=== PATIENT | male | born 1945 | race Caucasian/White ===

== ENCOUNTER 2017-06-28 17:31 | Outpatient (CLI) | payer MEDICARE, OTHER | END 2017-06-28 17:32 | disposition critical access hospital (66) | LOC: EMS 17:31 | PROVIDERS: ATTEND Surgery | DX: R29.810 Facial weakness (principal) | CPT/HCPCS: A0425; A0427 ==

== ENCOUNTER 2017-06-28 17:50 | Observation (INO) | payer MEDICARE, OTHER ==
--- NOTE | 2017-06-28 18:12 | ED Physician Documentation ---
PD HPI FOCAL NEURO - Stated complaint Stated Complaint: POSS STROKE - Chief complaint Chief Complaint: Neuro - History obtained from History obtained from: Patient, EMS - History of Present Illness Timing - onset: How many hours ago (9) Timing - duration: Hours (9) Timing - details: Constant Time of symptom onset unknown: Time of onset unknown (last normal at 9am, noticed by someone else at 2pm) Severity of deficit: Moderate Weakness: Face, Left. 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 unknown last CD 4 counts) Baseline status: positive: A&OX3, ambulatory, indep Similar symptoms before: Has not had sx before Recently seen: Not recently seen Review of Systems Ten Systems: 10 systems reviewed and negative Constitutional: denies: Fever, Chills Eyes: denies: Decreased vision, Photophobia Ears: denies: Ear pain Nose: denies: Rhinorrhea / runny nose, Congestion Throat: denies: Sore throat Cardiac: denies: Chest pain / pressure Respiratory: denies: Cough GI: denies: Abdominal Pain, Nausea, Vomiting, Diarrhea Skin: denies: Rash Musculoskeletal: denies: Neck pain, Back pain Neurologic: denies: Confused, Altered mental status, Headache PD PAST MEDICAL HISTORY - Past Medical History Past Medical History: Yes Cardiovascular: Hypertension - Present Medications Home Medications: Ambulatory Orders Medication Instructions Recorded Confirmed Lisinopril 20 mg PO DAILY 06/28/17 06/28/17 - Allergies Allergies/Adverse Reactions: Allergies Allergy/AdvReac Type Severity Reaction Status Date / Time No Known Drug Allergies Allergy Verified 06/28/17 17:58 PD ED PE NORMAL - Vitals Vital signs reviewed: Yes - General General: Alert and oriented X 3, No acute distress - HEENT HEENT: PERRL, EOMI, Moist mucous membranes, Pharynx benign - Neck Neck: Supple, no meningeal sign - Cardiac Cardiac: RRR, Strong equal pulses - Respiratory Respiratory: No respiratory distress, Clear bilaterally - Abdomen Abdomen: Soft, Non tender, Non distended - Back Back: No spinal TTP - Derm Derm: Warm and dry, No rash - Neuro Neuro: Alert and oriented X 3, No sensory deficit, Other (L sided facial droop. forehead partially spared. ) Eye Opening: Spontaneous Motor: Obeys Commands Verbal: Oriented GCS Score: 15 - Psych Psych: Normal mood, Normal affect NIHSS - Time Time: 18:00 - Level of Consciousness Level of consciousness: (0) Alert, Keenly responsive LOC Questions: (0) Answers both Q's correct LOC Commands: (0) Performs both correctly - Gaze Best Gaze: (0) Normal - Visual Visual: (0) No loss - Facial Palsy Facial Palsy: (2) Partial paralysis - Motor Arms (both separate) Motor Arm (right): (0) No drift Motor Arm (left): (0) No drift - Motor Legs (both separate) Motor Leg (right): (0) No drift Motor Leg (left): (0) No drift - Limb Ataxia Limb Ataxia: (0) Absent - Sensory Sensory: (0) Normal - Best Language Best Language: (0) No aphasia - Dysarthria Dysarthria: (0) Normal - Extinction and Inattention (formally neg Extinction and inattention: (0) No abnormality - Total Score/Results Total Score/Result: 2 Results - Vitals Vitals: Vital Signs - 24 hr 06/28/17 06/28/17 17:54 20:39 Temperature 36.8 C Heart Rate 70 66 Respiratory 18 18 Rate Blood Pressure 169/95 H 142/93 H O2 Saturation 99 97 Oxygen O2 Source Room air - EKG (time done) 1810 Rate: Rate (enter#) (60) Rhythm: NSR Willard: Normal Intervals: Prolonged NM QRS: Normal Ischemia: Normal ST segments Computer interpretation: Agree with computer - Labs Labs: Laboratory Tests 06/28/17 06/28/17 18:15 18:15 WBC 7.4 RBC 4.65 L Hgb 14.6 Hct 43.3 MCV 93.3 MCH 31.3 H MCHC 33.6 RDW 14.7 Plt Count 243 MPV 7.0 L Neut # 3.2 Lymph # 3.2 Sioux # 0.8 Eos # 0.2 Baso # 0.0 Absolute Nucleated RBC 0.00 Nucleated RBC % 0.0 Sodium 136 Potassium 4.0 Chloride 103 Carbon Dioxide 23 Anion Gap 10.0 BUN 17 Creatinine 1.0 Estimated GFR (MDRD) 74 L Glucose 91 Calcium 8.6 Total Bilirubin 0.3 AST 22 ALT 28 Alkaline Phosphatase 38 L Total Protein 7.2 Albumin 3.9 Globulin 3.3 Albumin/Globulin Ratio 1.2 Lipase 26 - Rads (name of study) head angio CT Radiology: Prelim report reviewed, EMP read contemporaneously, See rad report ( CT Head: No acute intracranial abnormality. Specifically, no evidence of acute infarct, hemorrhage, or mass lesion. No abnormal enhancement. CTA Head: Normal CTA of the head. No significant vascular stenosis, dissection, or aneurysm. CTA neck: No significant cervical carotid or vertebral artery stenosis. No evidence for dissection. Scattered cervical and mediastinal nodes, not enlarged by size criteria although abnormally increased in numbers. Clinical correlation suggested. Consider follow-up nonemergent CT of the chest with contrast to further evaluate. ) Neck angio CT Radiology: Prelim report reviewed, EMP read contemporaneously, See rad report ( CT Head: No acute intracranial abnormality. Specifically, no evidence of acute infarct, hemorrhage, or mass lesion. No abnormal enhancement. CTA Head: Normal CTA of the head. No significant vascular stenosis, dissection, or aneurysm. CTA neck: No significant cervical carotid or vertebral artery stenosis. No evidence for dissection. Scattered cervical and mediastinal nodes, not enlarged by size criteria although abnormally increased in numbers. Clinical correlation suggested. Consider follow-up nonemergent CT of the chest with contrast to further evaluate. ) PD MEDICAL DECISION MAKING - ED course Complexity details: reviewed results, re-evaluated patient, considered differential, d/w patient, d/w family ED course: Patient is a 72-year-old male who presents to the emergency department with what appears to be strokelike symptoms affecting the left side of the face. 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 Will place the patient in observation for MRI in the morning. Patient will be started on acyclovir by the hospitalist. Discussed the case with Dr. Alfaro, hospitalist who accepts. No acute findings on CT angiogram. No change in symptoms in the emergency department. No carotid dissection. This document was made in part using voice recognition software. While efforts are made to proofread this document, sound alike and grammatical errors may occur. Departure - Departure Disposition: ED Place in Observation Clinical Impression: Facial droop Condition: Good Discharge Date/Time: 06/28/17 22:00
[2017-06-28 18:21] LABS: BASOPHILS % (AUTO) 0.5 %; EOSINOPHILS # (AUTO) 0.2 10^3/uL (0.0-0.7); EOSINOPHILS % (AUTO) 2.9 %; HGB - HEMOGLOBIN 14.6 g/dL (14.0-18.0); LYMPHOCYTES # (AUTO) 3.2 10^3/uL (1.5-3.5); LYMPHOCYTES % (AUTO) 43.1 %; MEAN CORPUSCULAR HEMOGLOBIN 31.3 pg (27.0-31.0); MEAN CORPUSCULAR HGB CONC 33.6 g/dL (32.0-36.0); MEAN CORPUSCULAR VOLUME 93.3 fL (80.0-94.0); MONOCYTES # (AUTO) 0.8 10^3/uL (0.0-1.0); MONOCYTES % (AUTO) 10.6 %; NEUTROPHILS # (AUTO) 3.2 10^3/uL (1.5-6.6); NEUTROPHILS % (AUTO) 42.9 %; PLT - PLATELET COUNT 243 10^3/uL (130-450); RED BLOOD COUNT 4.65 10^6/uL (4.70-6.10); RED CELL DISTRIBUTION WIDTH 14.7 % (12.0-15.0); WHITE BLOOD COUNT 7.4 x10^3/uL (4.8-10.8)
[2017-06-28 18:34] LABS: ALBUMIN 3.9 g/dL (3.2-5.5); ALBUMIN/GLOBULIN RATIO 1.2 (1.0-2.2); BILIRUBIN,TOTAL 0.3 mg/dL (0.2-1.0); CALCIUM 8.6 mg/dL (8.5-10.3); TOTAL PROTEIN 7.2 g/dL (6.7-8.2)
[2017-06-28] MEDS ORDERED: IOPAMIDOL-300 100 ML VIAL ONE (19:28)
[2017-06-28] MEDS ORDERED: IOPAMIDOL-300 100 ML VIAL IVP ONE (19:50)
--- NOTE | 2017-06-28 20:29 | CT Report ---
EXAM: CT ANGIOGRAM HEAD AND NECK. CT SCAN OF THE HEAD WITHOUT AND WITH CONTRAST. EXAM DATE: 06/28/2017 08:04 PM CLINICAL HISTORY: Left sided facial droop.. COMPARISON: None. TECHNIQUE: - CT Scan Head: Using a multidetector scanner, axial images were acquired from the foramen magnum to the skull vertex prior to and following contrast administration. - CT Angiogram: Using a multidetector scanner, high-resolution axial images were acquired from the ao rtic arch to the vertex following rapid infusion of intravenous contrast. Reformats: Multiplanar MIP reformats were reconstructed. Nascet criteria used for stenosis measurement. IV Contrast: 80 cc Isovue 300. In accordance with CT protocol optimization, one or more of the following dose reduction techniques w ere utilized for this exam: automated exposure control, adjustment of mA and/or KV based on patient s ize, or use of iterative reconstructive technique. FINDINGS: Non Contrast Head: There is no mass, mass effect, midline shift or abnormal extraaxial fluid collection. Size and confi guration of the ventricles appear normal. There is no intracranial hemorrhage. Curtis white matter differentiation is maintained. Brain stem and cerebellum appear unremarkable. Calvarium and skull base appear intact and normal. Orbits and extracranial soft tissue appear unremarkable. Post contrast CT Head: No abnormal enhancement. Curtis white matter differentiation appear preserved. Dural venous sinus and deep cerebral veins appear normal. CTA HEAD: Anterior Circulation: The internal carotid arteries (ICA), middle cerebral arteries (MCA), and anteri or cerebral arteries (HOLGER) are patent bilaterally. The anterior communicating artery (A-COM) appears patent. No aneurysms, stenoses, or anatomic anomalies evident. Posterior Circulation: The superior vertebral artery, basilar, and posterior cerebral arteries (FACTORER) are patent. No aneurysms, stenoses, or anomalies evident. The posterior communicating arteries (P-COM ) are patent bilaterally. Hypoplastic P1 segments of the bilateral FACTORER, left side more hypoplastic th an right, near bilateral FACTORER anatomy. CTA NECK: Right Carotid: The common carotid, internal carotid, and external carotid arteries are widely patent. No dissection, significant atherosclerotic plaque, or calcification identified. No significant steno sis by NASCET criteria. Left Carotid: The common carotid, internal carotid, and external carotid arteries are widely patent. No dissection, significant atherosclerotic plaque, or calcification identified. No significant stenos is by NASCET criteria. Vertebrals: The vertebrobasilar system shows no stenosis, dissection, aneurysm, or significant athero sclerotic disease. Aortic arch and pulmonary artery appear normal. Other: Degenerative changes at C6-C7 and C5-C6. No significant canal narrowing. Mediastinum shows mul tiple right paratracheal lymph nodes. Several scattered nonenlarged cervical nodes bilaterally. IMPRESSION: CT Head: No acute intracranial abnormality. Specifically, no evidence of acute infarct, hemorrhage, o r mass lesion. No abnormal enhancement. CTA Head: Normal CTA of the head. No significant vascular stenosis, dissection, or aneurysm. CTA neck: No significant cervical carotid or vertebral artery stenosis. No evidence for dissection. Scattered cervical and mediastinal nodes, not enlarged by size criteria although abnormally increased in numbers. Clinical correlation suggested. Consider follow-up nonemergent CT of the chest with cont rast to further evaluate. [facility] Referring Provider Line: [phone] SITE ID: [id number]
--- NOTE | 2017-06-28 20:30 | CT Report ---
EXAM: CT ANGIOGRAM HEAD AND NECK. CT SCAN OF THE HEAD WITHOUT AND WITH CONTRAST. EXAM DATE: 06/28/2017 08:04 PM CLINICAL HISTORY: Left sided facial droop.. COMPARISON: None. TECHNIQUE: - CT Scan Head: Using a multidetector scanner, axial images were acquired from the foramen magnum to the skull vertex prior to and following contrast administration. - CT Angiogram: Using a multidetector scanner, high-resolution axial images were acquired from the ao rtic arch to the vertex following rapid infusion of intravenous contrast. Reformats: Multiplanar MIP reformats were reconstructed. Nascet criteria used for stenosis measurement. IV Contrast: 80 cc Isovue 300. In accordance with CT protocol optimization, one or more of the following dose reduction techniques w ere utilized for this exam: automated exposure control, adjustment of mA and/or KV based on patient s ize, or use of iterative reconstructive technique. FINDINGS: Non Contrast Head: There is no mass, mass effect, midline shift or abnormal extraaxial fluid collection. Size and confi guration of the ventricles appear normal. There is no intracranial hemorrhage. Curtis white matter differentiation is maintained. Brain stem and cerebellum appear unremarkable. Calvarium and skull base appear intact and normal. Orbits and extracranial soft tissue appear unremarkable. Post contrast CT Head: No abnormal enhancement. Curtis white matter differentiation appear preserved. Dural venous sinus and deep cerebral veins appear normal. CTA HEAD: Anterior Circulation: The internal carotid arteries (ICA), middle cerebral arteries (MCA), and anteri or cerebral arteries (HOLGER) are patent bilaterally. The anterior communicating artery (A-COM) appears patent. No aneurysms, stenoses, or anatomic anomalies evident. Posterior Circulation: The superior vertebral artery, basilar, and posterior cerebral arteries (MISSION MANAGER) are patent. No aneurysms, stenoses, or anomalies evident. The posterior communicating arteries (P-COM ) are patent bilaterally. Hypoplastic P1 segments of the bilateral MISSION MANAGER, left side more hypoplastic th an right, near bilateral MISSION MANAGER anatomy. CTA NECK: Right Carotid: The common carotid, internal carotid, and external carotid arteries are widely patent. No dissection, significant atherosclerotic plaque, or calcification identified. No significant steno sis by NASCET criteria. Left Carotid: The common carotid, internal carotid, and external carotid arteries are widely patent. No dissection, significant atherosclerotic plaque, or calcification identified. No significant stenos is by NASCET criteria. Vertebrals: The vertebrobasilar system shows no stenosis, dissection, aneurysm, or significant athero sclerotic disease. Aortic arch and pulmonary artery appear normal. Other: Degenerative changes at C6-C7 and C5-C6. No significant canal narrowing. Mediastinum shows mul tiple right paratracheal lymph nodes. Several scattered nonenlarged cervical nodes bilaterally. IMPRESSION: CT Head: No acute intracranial abnormality. Specifically, no evidence of acute infarct, hemorrhage, o r mass lesion. No abnormal enhancement. CTA Head: Normal CTA of the head. No significant vascular stenosis, dissection, or aneurysm. CTA neck: No significant cervical carotid or vertebral artery stenosis. No evidence for dissection. Scattered cervical and mediastinal nodes, not enlarged by size criteria although abnormally increased in numbers. Clinical correlation suggested. Consider follow-up nonemergent CT of the chest with cont rast to further evaluate. [facility] Referring Provider Line: [phone] SITE ID: [id number]
[2017-06-28] MEDS ORDERED: ATORVASTATIN 40 MG TABLET PO SCH (21:00)
[2017-06-28] MEDS ORDERED: HYDROcod/ACETAM 5/325 MG TABLET PO PRN (21:00)
[2017-06-28] MEDS ORDERED: ACETAMINOPHEN 325 MG TABLET PO PRN (21:00)
[2017-06-28] MEDS ORDERED: ONDANSETRON 4 MG/2 ML VIAL IVP PRN (21:00)
[2017-06-28] MEDS ORDERED: SODIUM CHLORIDE FLUSH 0.9% 10 ML SYRINGE IVP PRN (21:00)
[2017-06-28] MEDS ORDERED: PROCHLORPERAZINE 10 MG/2 ML VIAL IVP PRN (21:00)
[2017-06-28] MEDS: valACYclovir 500 MG TABLET PO SCH ×3 (22:39→23:20)
[2017-06-28] MEDS: predniSONE 20 MG TABLET PO SCH (22:40)
[2017-06-28] MEDS: SODIUM CHLORIDE FLUSH 0.9% 10 ML SYRINGE IVP SCH (22:40)
[2017-06-28] MEDS: SODIUM CHLORIDE 0.9% 1,000 ML IV SCH (22:40)
--- NOTE | 2017-06-28 22:49 | HISTORY & PHYSICAL EXAMINATION ---
Chief Complaint - Chief Complaint Chief Complaint: Left facial droop History of Present Illness - Admitted From Admitted From:: Emergency department - History Obtained From Records Reviewed: Yes History obtained from: Patient Exam Limitations: None - History of Present Illness HPI Comment/Other: Patient is a 72-year-old gentleman with a past medical history significant for hypertension, obesity and recent diagnosis of HIV on HAART therapy who presented to the emergency department with a chief complaint of left sided facial droop. The patient states that he first noticed the symptoms at around 2 PM. He states that he was video chatting with a friend over his computer when his friend noted that the patient had a left facial droop. The patient then looked into the mirror and noticed that the left side of his face was drooping down. The patient denies any other focal weakness. He does state that there was numbness over the left lip area. The patient denies any other sensory changes or weakness. The patient does admit that he had a cold for the last week and noticed a left ear ache just a few days ago. He denies any fevers or chills. He states that he did not come into the hospital until his daughter arrived around 5 PM and noticed the same facial droop. He states at that point his daughter forced him to come into the emergency department. The patient does state that he had some slurred speech but states that has improved. He denies having had any expressive aphasia. The patient denies any headaches, blurred vision, runny nose, sore throat, nasal congestion, confusion, neck pain, neck stiffness, difficulty swallowing, chest pain, shortness of air, orthopnea, PND, shortness of air, increased lower extremity swelling, abdominal pain, nausea, vomiting, diarrhea, constipation, urinary urgency, urinary frequency, dysuria, joint pains, muscle aches, back pain, rashes, recent unintentional weight loss, weight gain or any changes in his appetite. On presentation to the emergency department the patient was hypertensive with blood pressure of 169/95 but afebrile and remainder of his vital signs are within normal limits. The patient underwent routine lab workup and both CBC and chemistry was all within normal limits. The patient did have an obvious left facial droop and there did appear to be some mild involvement of the muscles of the forehead. However the emergency room physicians felt that the patient was still able to raise his brows to some degree on the left side and therefore was not convinced that this was Patton's palsy. The patient underwent a CT angiogram of his head and neck which was normal. The patient did not have any improvement in the symptoms in the emergency department and was placed in observation for MRI and further workup for possibility of a stroke. History - Past Medical History Cardiovascular: reports: Hypertension, Other (Obesity) Respiratory: reports: None Endocrine/Autoimmune: reports: None GI: reports: None HEENT: reports: None Derm: reports: None Other Past Medical History: HIV - Family & Social History Family History: Father: Diabetes, Type 2, Sister: Alive and Well, Brother: Alive and Well Living arrangement: At home Living Situation: With family Social History Notes: The patient lives with his daughter in [place], [place]. He states that he spends most of the year traveling and has been in [place], [place] and other parts of the world over the last several years. The patient is originally from [place]. He has just one daughter. He is . He is a of the [employer]. He is currently retired. He does not smoke, does not drink alcohol and denies any illicit drug use. - POLST Patient has POLST: No POLST Status: Full Code Meds/Allgy - Home Medications Home Medications: Ambulatory Orders Medication Instructions Recorded Confirmed Lisinopril 20 mg PO DAILY 06/28/17 06/28/17 - Allergies Allergies/Adverse Reactions: Allergies Allergy/AdvReac Type Severity Reaction Status Date / Time No Known Drug Allergies Allergy Verified 06/28/17 17:58 Review of Systems - Other Findings Other Findings: A comprehensive review of systems was performed the pertinent positives and negatives are stated above in the HPI and the remainder of the review of systems is negative. Exam - Vital Signs Reviewed Vital Signs: Yes Vital Signs: Vital Signs x48h Temp Pulse Pulse Resp BP BP Pulse Ox 06/28/17 22:17 36.8 C 59 L 16 136/78 H 95 06/28/17 21:51 65 16 153/93 H 98 - Physical Exam General Appearance: positive: No acute distress, Alert, Other (Patient has a obvious left facial droop.) Eyes Bilateral: positive: Normal inspection, PERRL, EOMI, No lid inflammation, Conjunctivae nml, No scleral icterus ENT: positive: ENT inspection nml, Pharynx nml, No signs of dehydration. negative: Purulent nasal drainage, Pharyngeal erythema, Oral lesions Neck: positive: Nml inspection, Thyroid nml, No JVD, Trachea midline. negative : Thyromegaly, Lymphadenopathy (R), Lymphadenopathy (L), Carotid bruit, Tracheal deviation Respiratory: positive: Chest non-tender, No respiratory distress, Breath sounds nml. negative: Wheezes, Rales, Rhonchi Cardiovascular: positive: Regular rate & rhythm, No murmur, No gallop Peripheral Pulses: positive: 2+ Abdomen: positive: Non-tender, No organomegaly, Nml bowel sounds, No distention Back: positive: Nml inspection. negative: CVA tenderness (R), CVA tenderness (L ) Skin: positive: Color nml, No rash, Warm. negative: Cyanosis, Pallor Extremities: positive: Non-tender, Full ROM, Nml appearance, No pedal edema Neurologic/Psychiatric: positive: Oriented x3, CN's nml (2-12), Sensation nml, Mood/affect nml, Weakness (Weakness of facial muscles on the left.), Facial droop (Patient has a left facial droop involving the muscles of the forehead) Conclusion/Plan - Problem List (1) Facial droop Conclusion/Plan: Patient presented with left facial droop that began earlier this afternoon. The patient has no other focal weakness. There does appear to be involvement of the muscles of the forehead. The patient had a cold over the past week and was having left ear pain 2 days earlier. The patient does have a history of HIV. He also has a history of hypertension. Patient does have risk factors for a CVA. CT angios of the head and neck done in the emergency department was negative. 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 Plan: Start prednisone 60 mg daily and valacyclovir 1000 mg 3 times daily to treat for Patton's palsy Aspirin Lipitor MRI brain Echocardiogram Telemetry monitoring Neurochecks (2) Hypertension Conclusion/Plan: Patient has history of hypertension on presentation to the emergency department the patient's blood pressure is elevated. Patient takes lisinopril 20 mg twice a day at home. We will continue the patient's home dose of lisinopril but will monitor and allow for permissive hypertension overnight in case patient has had a stroke. Qualifiers: Hypertension type: essential hypertension Qualified Code(s): I10 - Essential (primary) hypertension (3) HIV (human immunodeficiency virus infection) Conclusion/Plan: Patient has history of HIV he states that this was diagnosed just a few months ago. The patient states that he is on a medication once a day however he did not know the name. Patient was told to bring the medication in from home so that he can take it while he is in the hospital. Patient states that he does not have a detectable viral load and believes his CD4 count is in a normal range. - Lab Results Lab results reviewed: Yes Fish Bones: 06/28/17 18:15 06/28/17 18:15 Other Lab Results: Laboratory Results WBC 7.4 x10^3/uL (4.8-10.8) 06/28/17 18:15 RBC 4.65 10^6/uL (4.70-6.10) L 06/28/17 18:15 Hgb 14.6 g/dL (14.0-18.0) 06/28/17 18:15 Hct 43.3 % (42.0-52.0) 06/28/17 18:15 MCV 93.3 fL (80.0-94.0) 06/28/17 18:15 MCH 31.3 pg (27.0-31.0) H 06/28/17 18:15 MCHC 33.6 g/dL (32.0-36.0) 06/28/17 18:15 RDW 14.7 % (12.0-15.0) 06/28/17 18:15 Plt Count 243 10^3/uL (130-450) 06/28/17 18:15 MPV 7.0 fL (7.4-11.4) L 06/28/17 18:15 Neut # 3.2 10^3/uL (1.5-6.6) 06/28/17 18:15 Lymph # 3.2 10^3/uL (1.5-3.5) 06/28/17 18:15 [place] # 0.8 10^3/uL (0.0-1.0) 06/28/17 18:15 Eos # 0.2 10^3/uL (0.0-0.7) 06/28/17 18:15 Baso # 0.0 10^3/uL (0.0-0.1) 06/28/17 18:15 Absolute Nucleated RBC 0.00 x10^3/uL 06/28/17 18:15 Nucleated RBC % 0.0 /100WBC 06/28/17 18:15 Sodium 136 mmol/L (135-145) 06/28/17 18:15 Potassium 4.0 mmol/L (3.5-5.0) 06/28/17 18:15 Chloride 103 mmol/L (101-111) 06/28/17 18:15 Carbon Dioxide 23 mmol/L (21-32) 06/28/17 18:15 Anion Gap 10.0 (6-13) 06/28/17 18:15 BUN 17 mg/dL (6-20) 06/28/17 18:15 Creatinine 1.0 mg/dL (0.6-1.2) 06/28/17 18:15 Estimated GFR (MDRD) 74 (>89) L 06/28/17 18:15 Glucose 91 mg/dL (70-100) 06/28/17 18:15 Calcium 8.6 mg/dL (8.5-10.3) 06/28/17 18:15 Total Bilirubin 0.3 mg/dL (0.2-1.0) 06/28/17 18:15 AST 22 IU/L (10-42) 06/28/17 18:15 ALT 28 IU/L (10-60) 06/28/17 18:15 Alkaline Phosphatase 38 IU/L (42-121) L 06/28/17 18:15 Total Protein 7.2 g/dL (6.7-8.2) 06/28/17 18:15 Albumin 3.9 g/dL (3.2-5.5) 06/28/17 18:15 Globulin 3.3 g/dL (2.1-4.2) 06/28/17 18:15 Albumin/Globulin Ratio 1.2 (1.0-2.2) 06/28/17 18:15 Lipase 26 U/L (22-51) 06/28/17 18:15 - Diagnostic Imaging Results Diagnostic Imaging Results: positive: Final report reviewed Diagnostic Imaging Results Comments: EXAM: CT ANGIOGRAM HEAD AND NECK. CT SCAN OF THE HEAD WITHOUT AND WITH CONTRAST. EXAM DATE: 06/28/2017 08:04 PM CLINICAL HISTORY: Left sided facial droop.. COMPARISON: None. TECHNIQUE: - CT Scan Head: Using a multidetector scanner, axial images were acquired from the foramen magnum to the skull vertex prior to and following contrast administration. - CT Angiogram: Using a multidetector scanner, high-resolution axial images were acquired from the aortic arch to the vertex following rapid infusion of intravenous contrast. Reformats: Multiplanar MIP reformats were reconstructed. Nascet criteria used for stenosis measurement. IV Contrast: 80 cc Isovue 300. In accordance with CT protocol optimization, one or more of the following dose reduction techniques were utilized for this exam: automated exposure control, adjustment of mA and/or KV based on patient size, or use of iterative reconstructive technique. FINDINGS: Non Contrast Head: There is no mass, mass effect, midline shift or abnormal extraaxial fluid collection. Size and configuration of the ventricles appear normal. There is no intracranial hemorrhage. Curtis white matter differentiation is maintained. Brain stem and cerebellum appear unremarkable. Calvarium and skull base appear intact and normal. Orbits and extracranial soft tissue appear unremarkable. Post contrast CT Head: No abnormal enhancement. Curtis white matter differentiation appear preserved. Dural venous sinus and deep cerebral veins appear normal. CTA HEAD: Anterior Circulation: The internal carotid arteries (ICA), middle cerebral arteries (MCA), and anterior cerebral arteries (HOLGER) are patent bilaterally. The anterior communicating artery (A-COM) appears patent. No aneurysms, stenoses, or anatomic anomalies evident. Posterior Circulation: The superior vertebral artery, basilar, and posterior cerebral arteries (COMMERCIAL CREDIT OFFICER ) are patent. No aneurysms, stenoses, or anomalies evident. The posterior communicating arteries (P- COM) are patent bilaterally. Hypoplastic P1 segments of the bilateral COMM[employer]CIAL CREDIT OFFICER, left side more hypoplastic than right, near bilateral COMM[employer]CIAL CREDIT OFFICER anatomy. CTA NECK: Right Carotid: The common carotid, internal carotid, and external carotid arteries are widely patent. No dissection, significant atherosclerotic plaque, or calcification identified. No significant stenosis by NASCET criteria. Left Carotid: The common carotid, internal carotid, and external carotid arteries are widely patent. No dissection, significant atherosclerotic plaque, or calcification identified. No significant stenosis by NASCET criteria. Vertebrals: The vertebrobasilar system shows no stenosis, dissection, aneurysm, or significant atherosclerotic disease. Aortic arch and pulmonary artery appear normal. Other: Degenerative changes at C6-C7 and C5-C6. No significant canal narrowing. Mediastinum shows multiple right paratracheal lymph nodes. Several scattered nonenlarged cervical nodes bilaterally. IMPRESSION: CT Head: No acute intracranial abnormality. Specifically, no evidence of acute infarct, hemorrhage , or mass lesion. No abnormal enhancement. CTA Head: Normal CTA of the head. No significant vascular stenosis, dissection, or aneurysm. CTA neck: No significant cervical carotid or vertebral artery stenosis. No evidence for dissection. Scattered cervical and mediastinal nodes, not enlarged by size criteria although abnormally increased in numbers. Clinical correlation suggested. Consider follow-up nonemergent CT of the chest with contrast to further evaluate. Core Measures - Anticipated LOS I expect patient to be DC'd or transferred within 96 hours.: Yes - DVT/VTE - Prophylaxis VTE/DVT Device ordered at admit?: Yes
[2017-06-29] MEDS: SODIUM CHLORIDE FLUSH 0.9% 10 ML SYRINGE IVP SCH ×2 (05:25→14:06)
[2017-06-29] MEDS: valACYclovir 500 MG TABLET PO SCH ×2 (05:27→14:05)
[2017-06-29 05:54] LABS: BASOPHILS % (AUTO) 0.2 %; EOSINOPHILS % (AUTO) 0.1 %; HGB - HEMOGLOBIN 15.6 g/dL (14.0-18.0); LYMPHOCYTES % (AUTO) 37.3 %; MEAN CORPUSCULAR HEMOGLOBIN 31.8 pg (27.0-31.0); MEAN CORPUSCULAR VOLUME 93.6 fL (80.0-94.0); MEAN PLATELET VOLUME 7.3 fL (7.4-11.4); MONOCYTES # (AUTO) 0.1 10^3/uL (0.0-1.0); MONOCYTES % (AUTO) 1.8 %; NEUTROPHILS # (AUTO) 3.3 10^3/uL (1.5-6.6); NEUTROPHILS % (AUTO) 60.6 %; PLT - PLATELET COUNT 256 10^3/uL (130-450); RED CELL DISTRIBUTION WIDTH 14.7 % (12.0-15.0); WHITE BLOOD COUNT 5.5 x10^3/uL (4.8-10.8)
[2017-06-29 06:01] LABS: ALBUMIN 3.9 g/dL (3.2-5.5); ALBUMIN/GLOBULIN RATIO 1.1 (1.0-2.2); BILIRUBIN,TOTAL 0.5 mg/dL (0.2-1.0); CALCIUM 8.8 mg/dL (8.5-10.3); TOTAL PROTEIN 7.5 g/dL (6.7-8.2)
[2017-06-29 06:02] LABS: PT - PROTHROMBIN TIME 11.7 secs (9.9-12.6)
[2017-06-29] MEDS ORDERED: ASPIRIN 325 MG TABLET PO SCH (08:00)
[2017-06-29] MEDS ORDERED: FAMOTIDINE 20 MG TABLET PO SCH (09:00)
[2017-06-29] MEDS ORDERED: LISINOPRIL 20 MG TABLET PO SCH ×2 (09:00)
[2017-06-29] MEDS ORDERED: POLYETHYLENE GLYCOL 3350 17 GM PACKET PO SCH (09:00)
[2017-06-29] MEDS: SODIUM CHLORIDE 0.9% 1,000 ML IV SCH (09:10)
[2017-06-29] MEDS: predniSONE 20 MG TABLET PO SCH (09:25)
--- NOTE | 2017-06-29 12:07 | MRI Preliminary Report ---
Exam: MRI BRAIN W/O Impression: 1. Age appropriate senescent change. 2. A mild amount of white matter disease is identified as described. The findings are relatively nons pecific, however, this most likely represents chronic microangiopathy. 3. No other significant intracranial pathology is demonstrated on this unenhanced brain MRI. In parti cular, there is no evidence of acute infarction on diffusion weighted sequence. Comments: Of note, typical findings seen with Patton's palsy are only demonstrated on contrast-enhanced MRI exami [facility]. SITE ID: [id number]
[2017-06-29 13:52] VITALS: BP 142/79
--- NOTE | 2017-06-29 14:14 | Discharge Plan ---
Discharge Plan Disposition: Home, Self Care Condition: Good Prescriptions: predniSONE [Deltasone] 60 mg PO DAILYWM #18 tablet Valacyclovir HCl [Valacyclovir] 1,000 mg PO TID #18 tablet Diet: Regular Activity Restrictions: No Restrictions Shower Restrictions: No Driving Restrictions: No Additional Instructions or Follow Up instructions: You were placed in observation to make sure that the paralysis on your face was truly only Patton's palsy. We found that your MRI was negative, the angiogram of your head was negative, and that there is no other lesions in your brain to suggest you are having a stroke, etc. As such you will be sent home on medication for Patton's palsy. Because there is a strong link between Patton's palsy and viral illness, you will be sent home on steroids and an antiviral medication for up to 6 days. Please see your primary care provider in follow-up in the next week. No Smoking: If you smoke, Please STOP! Call for help. Follow-up with: [facility], Hayden Singleton [Other]
--- NOTE | 2017-06-29 14:27 | DISCHARGE SUMMARY ---
"Discharge Summary Admit Date: 06/28/17 Discharge Date: 06/29/17 Discharging Provider: Oriana Ramon MD [phone] Primary Care Provider: Hayden DE LA GAR[facility], [facility] Code Status: Attempt Resuscitation Condition at Discharge: Good Discharge Disposition: 01 Home, Self Care - DIAGNOSES Discharge Diagnoses with Status of Each Condition: Patton's palsy HTN HIV positive - HPI History of Present Illness: Patient is a 72-year-old gentleman with a past medical history significant for hypertension, obesity and recent diagnosis of HIV on HAART therapy who presented to the emergency department with a chief complaint of left sided facial droop. The patient states that he first noticed the symptoms at around 2 PM. He states that he was video chatting with a friend over his computer when his friend noted that the patient had a left facial droop. The patient then looked into the mirror and noticed that the left side of his face was drooping down. The patient denies any other focal weakness. He does state that there was numbness over the left lip area. The patient denies any other sensory changes or weakness. The patient does admit that he had a cold for the last week and noticed a left ear ache just a few days ago. He denies any fevers or chills. He states that he did not come into the hospital until his daughter arrived around 5 PM and noticed the same facial droop. He states at that point his daughter forced him to come into the emergency department. The patient does state that he had some slurred speech but states that has improved. He denies having had any expressive aphasia. The patient denies any headaches, blurred vision, runny nose, sore throat, nasal congestion, confusion, neck pain, neck stiffness, difficulty swallowing, chest pain, shortness of air, orthopnea, PND, shortness of air, increased lower extremity swelling, abdominal pain, nausea, vomiting, diarrhea, constipation, urinary urgency, urinary frequency, dysuria, joint pains, muscle aches, back pain, rashes, recent unintentional weight loss, weight gain or any changes in his appetite. On presentation to the emergency department the patient was hypertensive with blood pressure of 169/95 but afebrile and remainder of his vital signs are within normal limits. The patient underwent routine lab workup and both CBC and chemistry was all within normal limits. The patient did have an obvious left facial droop and there did appear to be some mild involvement of the muscles of the forehead. However the emergency room physicians felt that the patient was still able to raise his brows to some degree on the left side and therefore was not convinced that this was Patton's palsy. The patient underwent a CT angiogram of his head and neck which was normal. The patient did not have any improvement in the symptoms in the emergency department and was placed in observation for MRI and further workup for possibility of a stroke. - CONSULTS | PROCEDURES Procedures: Laboratory Results WBC 5.5 x10^3/uL (4.8-10.8) 06/29/17 05:38 RBC 4.90 10^6/uL (4.70-6.10) 06/29/17 05:38 Hgb 15.6 g/dL (14.0-18.0) 06/29/17 05:38 Hct 45.8 % (42.0-52.0) 06/29/17 05:38 MCV 93.6 fL (80.0-94.0) 06/29/17 05:38 MCH 31.8 pg (27.0-31.0) H 06/29/17 05:38 MCHC 34.0 g/dL (32.0-36.0) 06/29/17 05:38 RDW 14.7 % (12.0-15.0) 06/29/17 05:38 Plt Count 256 10^3/uL (130-450) 06/29/17 05:38 MPV 7.3 fL (7.4-11.4) L 06/29/17 05:38 Neut # 3.3 10^3/uL (1.5-6.6) 06/29/17 05:38 Lymph # 2.0 10^3/uL (1.5-3.5) 06/29/17 05:38 [place] # 0.1 10^3/uL (0.0-1.0) 06/29/17 05:38 Eos # 0.0 10^3/uL (0.0-0.7) 06/29/17 05:38 Baso # 0.0 10^3/uL (0.0-0.1) 06/29/17 05:38 Absolute Nucleated RBC 0.00 x10^3/uL 06/29/17 05:38 Nucleated RBC % 0.0 /100WBC 06/29/17 05:38 PT 11.7 secs (9.9-12.6) 06/29/17 05:38 INR 1.0 (0.8-1.2) 06/29/17 05:38 Sodium 139 mmol/L (135-145) 06/29/17 05:38 Potassium 4.3 mmol/L (3.5-5.0) 06/29/17 05:38 Chloride 106 mmol/L (101-111) 06/29/17 05:38 Carbon Dioxide 22 mmol/L (21-32) 06/29/17 05:38 Anion Gap 11.0 (6-13) 06/29/17 05:38 BUN 16 mg/dL (6-20) 06/29/17 05:38 Creatinine 1.0 mg/dL (0.6-1.2) 06/29/17 05:38 Estimated GFR (MDRD) 74 (>89) L 06/29/17 05:38 Glucose 130 mg/dL (70-100) H 06/29/17 05:38 Calcium 8.8 mg/dL (8.5-10.3) 06/29/17 05:38 Total Bilirubin 0.5 mg/dL (0.2-1.0) 06/29/17 05:38 AST 25 IU/L (10-42) 06/29/17 05:38 ALT 32 IU/L (10-60) 06/29/17 05:38 Alkaline Phosphatase 45 IU/L (42-121) 06/29/17 05:38 Total Protein 7.5 g/dL (6.7-8.2) 06/29/17 05:38 Albumin 3.9 g/dL (3.2-5.5) 06/29/17 05:38 Globulin 3.6 g/dL (2.1-4.2) 06/29/17 05:38 Albumin/Globulin Ratio 1.1 (1.0-2.2) 06/29/17 05:38 Lipase 26 U/L (22-51) 06/28/17 18:15 MRI of the head with senescent changes. Small white matter disease. No lesions of HIV. No stroke. No aneurysm. CTA of head without pathology. - HOSPITAL COURSE Hospital Course: The patient was placed in observation overnight. Telemetry was normal sinus rhythm. There is no further neurological deficit that developed. Echocardiogram was done and normal left ventricle, ejection fraction 65-70%. Grade 1 diastolic dysfunction noted. Left atrium volume index and right atrium volume index was normal. No significant valvular heart disease. MRI of the head showed senescent changes, white matter disease that was mild, no HIV compatible lesions nor did he have aneurysms. Neck and head CT angiogram had no significant artery disease. 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 He will receive 6 days worth in the outpatient setting since he is already received 1 day in the hospital. Atorvastatin and aspirin will not be continued. I have asked him to follow-up with the [facility] in the next 2 weeks. If his left eyelid will not shut, consider at eyepatch and normal saline eye drops. - ALLERGIES Allergies/Adverse Reactions: Allergies Allergy/AdvReac Type Severity Reaction Status Date / Time No Known Drug Allergies Allergy Verified 06/28/17 17:58 - MEDICATIONS Home Medications: Ambulatory Orders Medication Instructions Recorded Confirmed Lisinopril 20 mg PO DAILY 06/28/17 06/29/17 Valacyclovir HCl [Valacyclovir] 1,000 mg PO TID #18 tablet 06/29/17 predniSONE [Deltasone] 60 mg PO DAILYWM #18 tablet 06/29/17 - PHYSICAL EXAM AT DISCHARGE General Appearance: positive: No acute distress, Alert Eyes Bilateral: positive: PERRL Neck: positive: No JVD. negative: Stiff neck, Carotid bruit Respiratory: positive: Chest non-tender. negative: Wheezes, Rales, Rhonchi Cardiovascular: positive: Regular rate & rhythm. negative: Gallop/S4, Friction rub Peripheral Pulses: positive: 2+ Abdomen: positive: Non-tender, No organomegaly, Nml bowel sounds Extremities: positive: Full ROM, No pedal edema Neurologic/Psychiatric: positive: Oriented x3, Motor nml, Sensation nml, Facial droop (including forehead) - LABS Result Diagrams: 06/29/17 05:38 06/29/17 05:38 - DIAGNOSTIC IMAGING Diagnostic Imaging Results: Final report reviewed"
--- NOTE | 2017-06-29 15:04 | MRI Report ---
MRI BRAIN WITHOUT CONTRAST INDICATION: 72-year-old male with left facial droop. Onset around 2 PM 06/28/2017. COMPARISON: Head CT 06/28/2017. TECHNIQUE: 1. T1 sagittal and fat-saturated T2 coronal. 2. Axial T1 3-D, FLAIR, T2, T2* and DWI. FINDINGS: There is mild generalized prominence of the cerebral cortical sulci and cerebellar folia considered w ell within normal limits for stated age. Ventricular size is normal. A mild amount of white matter disease is identified in the supratentorial brain, manifested as small T2 hyperintensities that are scattered throughout the periventricular, deep, and subcortical white ma tter bilaterally. A frontoparietal distribution predominates. Signal intensity of cortex and white ma tter is otherwise unremarkable. Flow voids are demonstrated in the main intracranial arteries. The small caliber of the intracranial vertebrobasilar system can be explained by the presence of fairly large posterior communicating arter ies that supply the bilateral cork insulation installer. The DWI sequence appears to stop slightly short of the vertex. Ho wever, no abnormal diffusion restriction is identified in the imaged brain. No evidence of acute or chronic hemorrhage on T2* GRE sequence. No abnormal extra-axial fluid collection. No mass effect or midline shift. There is bilateral exophthalmos of uncertain etiology. No evidence of intraorbital mass lesion. Limit ed assessment of the orbits reveals no other gross pathology. There is minor mucosal thickening scattered throughout the ethmoid and maxillary sinuses. The paranas al sinuses are otherwise clear. There is a tiny amount of fluid at the right mastoid tip. No soft tis anselmo swelling is identified overlying the right mastoid. No evidence of an obstructing nasopharyngeal mass. Noted are multiple small rounded T2 hyperintense foci in the posterior nasopharyngeal soft tiss ues, consistent with benign submucosal cysts. Noted is a small focus of T2 hyperintensity in the distribution of the right petrous apex (see images 6 and 7 of series [address] image 15 of series 901). This lesion does not demonstrate T1 hyperinten sity to suggest the possibility of a cholesterol granuloma. This appears to represent entrapped fluid in the pneumatized right petrous apex air cells. Marrow signal intensity in the regional skeletal structures is unremarkable. Multiple small, round, and ovoid T2 hyperintense foci are demonstrated in the parotid glands, likely representing intraparotid lymph nodes. IMPRESSION: 1. Age-appropriate senescent change. 2. A mild amount of white matter disease is identified as described. The findings are relatively nons pecific; however, this most likely represents chronic microangiopathy. 3. No other significant intracranial pathology is demonstrated on this unenhanced brain MRI. In parti cular, there is no evidence of acute infarction on diffusion weighted sequence. 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 Referring Provider Line: [phone] SITE ID: [id number]
== END 2017-06-29 14:33 | disposition home or self-care (01) ==
LOC: ED 17:50 → OBS 21:00
PROVIDERS: ADMIT Internal Medicine; ATTEND Specialist
DX: G51.0 Bell's palsy (principal); I10 Essential (primary) hypertension; Z21 Asymptomatic human immunodeficiency virus [HIV] infection status; E66.9 Obesity, unspecified; Z68.32 Body mass index [BMI] 32.0-32.9, adult
CPT/HCPCS: 36415; 70496; 70498; 70551; 80053; 83690; 85025; 85610; 93005; 93306; 96360; 96361; 99284; 99285; A9270; G0378; J7512; Q9967; 99283